=== PATIENT | male | born 1965 | race Caucasian/White ===

== ENCOUNTER 2017-10-19 00:51 | Emergency (ER) | payer BC, SELFPAY ==
[2017-10-19 00:52] VITALS: BP 190/90; PULSE 78; RESP 21; TEMP 36.6; O2SAT 97; BMI 36.1
[2017-10-19 00:58] VITALS: BP 183/88; PULSE 74; RESP 18; O2SAT 95
--- NOTE | 2017-10-19 01:08 | ED.VISSUMM ---
- ER Visit Summary Date of Service: 10/19/17 Chief Complaint: Paresthesias diffuse History of Present Illness: The patient is a 52 M stated that for last 3 weeks he has felt like his skin feels sunburn. It feels tingly and slightly painful to touch. It is everywhere. Occasionally he feels tingly. Occasionally gets some lightheadedness when he changes positions. He had a mild headache today frontal achy and use Tylenol. Is gone now. He tried to wait it out but continued to have the symptoms came in for further evaluation. Denies any past medical problems. Denies any visual deficits difficulties or other neurologic symptoms Physical Examination: [] Vital signs reviewed General: Well-nourished well-developed Head: Normocephalic atraumatic Eyes: Pupils equal round and reactive to light extraocular movements intact ENT: TMs clear no hemotympanum no trauma Neck: Nontender full range of motion Cardiovascular: Regular rate rhythm no murmurs normal S1-S2 Respiratory: No distress clear to auscultation bilaterally chest nontender Abdomen: Soft nontender nondistended normal bowel sounds no masses Back: Nontender no CVA tenderness Extremities: Nontender active range of motion ?4 extremities no trauma. Patient stated when I touch his extremities they feel like the skin is burned. Skin: Normal color no trauma Neuro alert oriented cranial nerves II through XII intact normal strength sensation reflexes Test Results: [] Emergency Department Course and Treatment: [] Lab work obtained. It shows nothing really remarkable. Glucose 207 but not a fasting level. Mag and false negative. All the other electrolytes unremarkable. Initially TSH was high but free T4 normal. No evidence of hypothyroidism. He will follow-up with his family doctor for further evaluation and treatment. I do not think he needs a CT of his head. Of a low suspicion for brain tumor intracranial hemorrhage. Patient thinks it might be stress related. He will follow-up Treatment Plan: [] Disposition: [] Impression: [] Full body paresthesia This note was generated with [employer] dictation software. It may contain incorrect words, spelling, and punctuation that were not noted in review of the chart prior to signing ED Disposition - Plan for ED Patient: Chief Complaint: Dizziness Referrals: Job Pizarro [Primary Care Provider] -
[2017-10-19 01:13] LABS: Absolute Lymphocyte Count 3.06 X10^3/ul (0.83-4.51); Absolute Neutrophil Count 3.3 X10^3/uL (2.0-7.7); Basophil# 0.05 X10^3/uL; Basophil% 0.7 % (0-1); Eosinophil# 0.43 X10^3/uL; Eosinophils% 5.6 % (0-5); Hematocrit 44.1 % (40-54); Hemoglobin 15.9 g/dl (13.0-16.5); Lymphocyte # 3.06 X10^3/ul (4.0); Lymphocyte % 39.9 % (19-41); Mean Corp Hgb Conc 36.1 g/gl (32-36); Mean Corpuscular Hgb 28.8 pg (27.0-32.0); Mean Corpuscular Volume 79.7 fL (80-94); Mean Platelet Vol. 8.6 fl (6.2-12.0); Monocyte# 0.84 X10^3/uL; Neutrophil # 3.27 X10^3/uL (2.7-7.7); Neutrophil % 42.5 % (47-70); POSITIVE COUNT NO; POSITIVE DIFFERENTIAL NO; POSITIVE MORPHOLOGY NO; Platelet Count 191 K/mm3 (150-450); RBC Distribution Width CV 13.2 % (11.6-14.6); RBC Distribution Width SD 37.8 fl (35.1-43.9); Red Blood Count 5.53 M/mm3 (4.6-6.2); White Blood Count 7.7 K/mm3 (4.4-11.0)
[2017-10-19 01:32] LABS: ALB/GLOB Ratio 1.1 RATIO (0.9-2.4); AST(SGOT) 19 U/L (15-37); Alanine Aminotransfer ALT/SGPT 31 U/L (16-61); Albumin, Serum 3.9 g/dL (3.2-5.0); Alkaline Phosphatase 86 U/L (45-117); Anion Gap 8 (5-15); BUN 12 mg/dL (7-18); BUN/Creat Ratio 11.1 RATIO (10-20); Calcium,Total 8.8 mg/dL (8.5-10.1); Chloride 104 mmol/L (98-107); Creatinine, Serum 1.08 mg/dL (0.70-1.30); EST Glomerular Filtration Rate 76 mL/min (>60); Est Glom Filt Rate - Afr Amer 92 mL/min (>60); Estimated Creatinine Clearance 82.61 ml/min; Globulin 3.6 g/dL (2.2-4.2); Glucose 207 mg/dL (74-106); Potassium 3.5 mmol/L (3.5-5.1); Protein, Total 7.5 g/dL (6.4-8.2); Sodium Level 138 mmol/L (136-145)
[2017-10-19 01:46] LABS: Thyroid Stim Hormone (TSH) 5.12 uIU/mL (0.358-3.74)
[2017-10-19 02:06] LABS: T4 Free Direct 1.06 ng/dL (0.76-1.46)
[2017-10-19 02:24] LABS: Phosphorus 3.2 mg/dL (2.5-4.9)
--- NOTE | 2017-10-19 02:33 | ED.DEP ---
ED Disposition - Plan for ED Patient: Disposition: Home or Assisted Living Chief Complaint: Dizziness Instructions: ED Paraesthesias Referrals: Job Pizarro [Primary Care Provider] -
[2017-10-19 02:37] VITALS: BP 153/92; PULSE 76; RESP 17; O2SAT 96
== END 2017-10-19 02:37 | disposition home or self-care (01) ==
PROVIDERS: Emergency Provider Emergency Medicine; Family Provider Family Medicine; PCP Family Medicine
DX: R20.2 Paresthesia of skin (principal); R51 Headache; E66.9 Obesity, unspecified
CPT/HCPCS: 80053; 83735; 84100; 84439; 84443; 85025; 99285

== ENCOUNTER 2018-06-09 09:27 | Emergency (ER) | payer BC, SELFPAY ==
[2018-06-09 09:28] VITALS: BP 153/102; PULSE 79; RESP 16; TEMP 36.8; O2SAT 96; BMI 35.4
[2018-06-09 09:37] VITALS: O2SAT 95
--- NOTE | 2018-06-09 09:43 | RAD_ITS ---
STUDY: X-RAY CHEST REASON FOR EXAM: Male, 53 years old. 2 week history of cough. TECHNIQUE: PA and lateral views of the chest. COMPARISON: None. FINDINGS: EKG electrodes are seen. The lungs are clear and expanded. There is no demonstrated pleural abnormality. Normal size heart. Normal mediastinum and saul. Normal visualized pulmonary arteries. Normal visualized aortic arch and descending thoracic aorta. There is a minimal levoscoliosis of the thoracic spine. Minimal degree of degenerative changes of the thoracic spine. Normal visualized ribs, clavicles, and shoulders. There is no demonstrated abnormality of the visualized soft tissue structures of the upper abdomen. RAD/Chest PA and Lateral IMPRESSION: No acute abnormality is seen. Electronically Signed: Ramin Terrell, at 10:36 EDT , Service support ,
--- NOTE | 2018-06-09 09:44 | ED.VISSUMM ---
- ER Visit Summary Date of Service: 06/09/18 Chief Complaint: Cough and congestion History of Present Illness: The patient is a 53 M who presents with cough and congestion that has been getting worse over the past month. Patient states the cough became worse over the past few days. Patient states she is coughing up some yellow sputum. Patient admits to a low-grade fever of 99.8 at home. Patient admits to some rhinorrhea. Patient admits to some pain in his chest and some shortness of breath. Patient states his chest pain is only when he coughs. Patient admits to some myalgias. Patient denies any nausea, vomiting, or diarrhea. Physical Examination: All signs are stable. Patient is afebrile. Patient is in no acute distress. Oral mucosa is pink and moist. Oropharynx shows some mild postnasal drainage. Nasal mucosa is congested. Tympanic membranes are clear bilaterally. Neck is supple. Trachea is midline. There is no JVD or lymphadenopathy noted. Heart was regular rate and rhythm. Lungs showed expiratory wheezing and rhonchi. There is good respiratory effort noted. Abdomen is soft nontender. Cranial nerves II through XII are intact. There are no focal motor or sensory deficits noted. Test Results: CBC and basic metabolic profile were normal. PA and lateral chest x-ray does not show any acute cardiopulmonary process. Emergency Department Course and Treatment: Patient was given a DuoNeb aerosol here. Patient was instructed that this is most likely a viral upper respiratory infection. Patient was instructed to drink plenty of fluids. Patient was instructed to take Tylenol or ibuprofen as needed for any pain or fevers. Patient was instructed to follow-up with his primary care physician in 5-7 days. Patient understood and was agreeable with the plan. All questions were answered. Disposition: Discharge home Impression: Viral upper respiratory infection This note was generated with [employer] dictation software. It may contain incorrect words, spelling, and punctuation that were not noted in review of the chart prior to signing ED Disposition - Plan for ED Patient: Disposition: Home or Assisted Living Diagnosis: Viral upper respiratory tract infection with cough Instructions: ED Upper Resp Infec No Abx Tx Referrals: Job Pizarro [NON-STAFF] - 5-7 Days
[2018-06-09 09:58] VITALS: PULSE 72; RESP 10; O2SAT 96
[2018-06-09] MEDS: Ipratropium/Albuterol Sulfate 3 ML AMPUL.NEB INHALATION (09:58)
[2018-06-09 10:10] LABS: Absolute Lymphocyte Count 2.07 X10^3/ul (0.83-4.51); Absolute Neutrophil Count 3.6 X10^3/uL (2.0-7.7); Basophil# 0.03 X10^3/uL; Basophil% 0.4 % (0-1); Eosinophil# 0.48 X10^3/uL; Eosinophils% 6.9 % (0-5); Hematocrit 45.9 % (40-54); Hemoglobin 16.3 g/dl (13.0-16.5); Lymphocyte # 2.07 X10^3/ul (4.0); Lymphocyte % 29.8 % (19-41); Mean Corp Hgb Conc 35.5 g/gl (32-36); Mean Corpuscular Hgb 27.9 pg (27.0-32.0); Mean Corpuscular Volume 78.6 fL (80-94); Mean Platelet Vol. 8.4 fl (6.2-12.0); Monocyte# 0.73 X10^3/uL; Monocyte% 10.5 % (0-10); Neutrophil # 3.63 X10^3/uL (2.7-7.7); Neutrophil % 52.3 % (47-70); Platelet Count 184 K/mm3 (150-450); RBC Distribution Width CV 13.5 % (11.6-14.6); RBC Distribution Width SD 37.8 fl (35.1-43.9); Red Blood Count 5.84 M/mm3 (4.6-6.2)
[2018-06-09 10:11] LABS: POSITIVE COUNT NO; POSITIVE DIFFERENTIAL NO; POSITIVE MORPHOLOGY NO
[2018-06-09 10:20] LABS: Anion Gap 5 (5-15); BUN 12 mg/dL (7-18); BUN/Creat Ratio 12.8 RATIO (10-20); Calcium,Total 8.5 mg/dL (8.5-10.1); Chloride 106 mmol/L (98-107); Creatinine, Serum 0.94 mg/dL (0.70-1.30); EST Glomerular Filtration Rate 89 mL/min (>60); Est Glom Filt Rate - Afr Amer 108 mL/min (>60); Estimated Creatinine Clearance 93.84 ml/min; Glucose 112 mg/dL (74-106); Potassium 3.6 mmol/L (3.5-5.1); Sodium Level 137 mmol/L (136-145)
== END 2018-06-09 11:28 | disposition home or self-care (01) ==
PROVIDERS: Emergency Provider Emergency Medicine
DX: J06.9 Acute upper respiratory infection, unspecified (principal)
CPT/HCPCS: 71046; 80048; 85025; 94640; 99282; A4216

== ENCOUNTER → 2020-05-04 16:00 | Outpatient (CLI) | payer BC, SELFPAY ==
--- NOTE | 2020-05-04 16:29 | CT_ITS ---
STUDY: CT LEFTLOWER EXTREMITY WITHOUT CONTRAST REASON FOR EXAM: Male, 55 years old. LEFT KNEE REPLACEMENT RADIATION DOSAGE (If Supplied By Facility): CTDIvol = ( 19.42 ) mGy, DLP = ( 1351.43 ) mGycm TECHNIQUE: Thin section transaxial imaging of the ankle was obtained, with sagittal and coronal reconstructed images. Individualized dose optimization techniques were used for this CT. COMPARISON: None. Hip findings: A small moderate size diffuse osteophyte is present across the anterior aspect of the left SI joint. A small fat-containing left inguinal hernia is also present. No visualized fractures or avascular necrosis. Normal visualized superior and inferior pubic rami and ischial tuberosities. Small unfused apophysis or normal variant ossicle of the posterior aspect of the left ischial tuberosity versus sequela of an old hamstring avulsion fracture noted. There is mild axial narrowing of the left hip joint in addition to cortical spurring at the lateral aspect of the acetabular roof. Unremarkable soft tissues. Normal visualized soft tissue structures of the pelvis. Knee findings: Normal tibiofibular articulation. No visualized fractures. There is severe lateral patellofemoral narrowing and degenerative osteoarthritis. A small joint effusion is present. The medial lateral compartments are mildly narrowed with mild cortical osteophyte formation. Normal proximal tibiofibular articulation. The quadriceps tendon is grossly normal. The patellar tendon is grossly normal. Normal Hoffa''s fat pad. The soft tissues are unremarkable. Ankle findings: Moderate calcaneal enthesopathy noted at the Achilles tendon insertion site. Small corticated ossicle at the undersurface of the lateral malleolus could represent sequela from prior trauma or an unfused apophysis. No fracture or avascular necrosis or osteochondral defect is seen. Small corticated ossicles on the medial proximal aspect of the navicular bone could represent normal ossicles or sequela from previous avulsion trauma. Normal visualized distal tibia and fibula. Normal tibiotalar articulation and talar dome. Normal talus, calcaneus, navicular and cuboid tarsal bones. Normal subtalar, talonavicular and calcaneocuboid articulations. Normal navicular-cuneiform, cuneiform tarsal bones and intercuneiform articulations. Normal tarsometatarsal articulations and visualized metatarsi. The soft tissue structures are grossly normal. CT/Extremity Lower without Contra IMPRESSION: Degenerative changes of the left hip and knee Electronically Signed: Silvestre Velazquez MD at 23:15 EST , Service support ,
== END ==
PROVIDERS: PCP Student in an Organized Health Care Education/Training Program; Referring Provider Orthopaedic Surgery; Visit Provider Orthopaedic Surgery
DX: M17.12 Unilateral primary osteoarthritis, left knee (principal)
CPT/HCPCS: 73700

== ENCOUNTER 2020-05-16 05:29 | Day surgery (SDC) | payer BC, SELFPAY ==
--- NOTE | 2020-05-04 16:13 | EKG12_ITS ---
Test Reason : PRE SURGERY Blood Pressure : / mmHG Vent. Rate : 076 BPM Atrial Rate : 076 BPM P-R Int : 138 ms QRS Dur : 088 ms QT Int : 386 ms P-R-T Axes : 052 002 035 degrees QTc Int : 434 ms Normal sinus rhythm Normal ECG Confirmed by KEYANA ROBERTSON, DARREL ([id number]), editorial cartoonist SANDRA MATIAS ([id number]) on 05/05/2020 8:40:46 AM Referred By: Uriah Bacon Confirmed By:DARREL RIDLEY MD
[2020-05-04 16:42] LABS: Hematocrit 45.1 % (40-54); Hemoglobin 15.6 g/dL (13.0-16.5); Mean Corp Hgb Conc 34.6 g/dL (32-36); Mean Corpuscular Hgb 27.5 pg (27.0-32.0); Mean Corpuscular Volume 79.4 fL (80-94); Mean Platelet Vol. 8.4 fl (6.2-12.0); Platelet Count 299 K/mm3 (150-450); RBC Distribution Width CV 12.9 % (11.6-14.6); RBC Distribution Width SD 36.4 fl (35.1-43.9); Red Blood Count 5.68 M/mm3 (4.6-6.2); White Blood Count 8.7 K/mm3 (4.4-11.0)
[2020-05-04 17:05] LABS: Anion Gap 8 (5-15); BUN 16 mg/dL (7-18); BUN/Creat Ratio 17.8 RATIO (10-20); Chloride 103 mmol/L (98-107); EST Glomerular Filtration Rate 93 mL/min (>60); Est Glom Filt Rate - Afr Amer 113 mL/min (>60); Glucose 99 mg/dL (74-106); Potassium 3.4 mmol/L (3.5-5.1); Sodium Level 136 mmol/L (136-145)
[2020-05-04 17:14] LABS: Magnesium 2.1 mg/dL (1.6-2.6)
[2020-05-16] VITALS (10 sets, daily range): BP systolic 106–137; BP diastolic 64–94; PULSE 71–88; RESP 14–16; TEMP 36.3–37.2; O2SAT 93–100; BMI 37.0
--- NOTE | 2020-05-16 | KNEE_PTH ---
PATIENT: YESENIA WOODS Jr. LOC: [facility] [place] U#:[id number] AGE/SX: 55/M ROOM: RE05/16/[address]: Dr. Uriah Bacon DO : 1965 BED: DIS: 05/16/2020 SPEC #: [id number] RECD: 05/16/20 12:58 STATUS: SHONNA REQ #: [id number] JW: 05/16/20 00:[address]: Uriha Bacon DEPT: SURGICAL PATHOLOGY RECD BY: Sundar Kenney ENTERED: 05/16/20 12:58 SP TYPE: TOTAL KNEE OTHR DR: Dr. Mustapha Landa DO Tissues: Knee, NOS Procedures: Decalcification bone/plaque Surgery Specimen Level IV HEADER OPERATION: ERAS, total knee replacement robotic arm assist PRE-OP DIAGNOSIS: Osteoarthritis left knee TISSUE SUBMITTED: Left knee bone and soft tissue MICROSCOPIC DIAGNOSIS Bone and soft tissue, left knee, total knee replacement/resection: Pieces of bone with degenerative osteoarthritic changes. GAVIN:jocelynn 05/19/2020 MICROSCOPIC DESCRIPTION Slides are reviewed. GROSS DESCRIPTION Received is one container designated bone and soft tissue left knee. The specimen consists of multiple fragments of sousa-yellow bone measuring in aggregate 10 x 10 x 3 cm. No soft tissue is identified. A number of bony fragments contain articular surfaces consistent with tibial plateau and femoral condyle and displaying prominent osteophyte formation, eburnation, and bone erosion. [employer] Network Planner sections from the bone is submitted one cassette after decalcification. / GAVIN:jocelynn 05/16/20 TC:5 CPT: 91622, 74384
[2020-05-16 06:26] LABS: Bedside Glucose 207 mg/dL (70-110)
[2020-05-16] MEDS: Gabapentin 600 MG Tablet PO (06:43)
[2020-05-16] MEDS: Acetaminophen 500 MG Tablet 1000 MG PO (06:43)
[2020-05-16] MEDS: Insulin Lispro 100 UNIT/ML INSULN.PEN SC (06:44)
[2020-05-16] MEDS: Scopolamine 1mg/72hr Patch 1 PATCH TD (06:48)
[2020-05-16] MEDS: Lactated Ringers 1,000 ML 100 ML IV (07:00)
[2020-05-16] MEDS: Cefazolin 2 GM in 0.9% Normal Saline 100 ML IV ×2 (07:30→12:59)
--- NOTE | 2020-05-16 07:34 | RAD_ITS ---
STUDY: X-RAY - LEFT KNEE REASON FOR EXAM: Male, 55 years old. Pain. TECHNIQUE: 2 view(s) of the knee. COMPARISON: None. FINDINGS: Status post total knee arthroplasty. Surgical hardware intact/well aligned. No acute complications. Postoperative soft tissues with staple line. RAD/Knee 1 or 2 Views IMPRESSION: Uncomplicated left knee arthroplasty Electronically Signed: Irwin Quesada DO at 10:13 EST Tel , Service support ,
--- NOTE | 2020-05-16 08:48 | PCM.OPRPT ---
Report of Operation Date of Procedure: 05/16/20 Pre-Operative Diagnosis: OA left knee Post-Operative Diagnosis: same Surgery/Procedure Performed:: Left TKR wildlife ecology professor: Salo Quesada Type of Anesthesia:: Spinal Anesthesiologist: Irwin Gomez Specimen's removed: bone Estimated Blood Loss (mL): 20 cc Fluids Replaced: 1000 cc crystalloid - Admit VTE Documentation VTE Present on Admission: No VTE Mechan Device Prophylaxis: SCD's, Thigh High ROSIE Hose VTE Pharm Prophylaxis ordered?: Yes
[2020-05-16] MEDS: Lactated Ringers 1,000 ML 125 ML IV (09:30)
[2020-05-16 10:41] LABS: Bedside Glucose 169 mg/dL (70-110)
[2020-05-16] MEDS: HYDROcodone Bitartrate/Apap 5/325 Tablet PO (11:20)
== END 2020-05-16 14:00 | disposition home or self-care (01) ==
LOC: SDC 05:29 → AC 05:30
PROVIDERS: Anesthesiology; PCP Student in an Organized Health Care Education/Training Program; Referring Provider Orthopaedic Surgery; Visit Provider Orthopaedic Surgery
PROC: 0SRD0JZ Replacement of Left Knee Joint with Synthetic Substitute, Open Approach (ICD-10-PCS; CPT 27447; principal; 2020-05-16 07:00)
DX: M17.12 Unilateral primary osteoarthritis, left knee (principal); I10 Essential (primary) hypertension; E66.9 Obesity, unspecified; Z68.37 Body mass index [BMI] 37.0-37.9, adult; Z20.822 Contact with and (suspected) exposure to COVID-19
CPT/HCPCS: 01402; 27447; 64447; 76942; S2900; 36415; 73560; 80048; 82962; 83735; 85027; 87081; 87426; 88305; 88311; 93005; 97161; C1776; C9803; J7120; A4216; J2405

== ENCOUNTER 2020-06-12 01:03 | Observation (INO) | payer BC, SELFPAY ==
[2020-05-16 06:28] VITALS: BMI 37.0
[2020-06-12] VITALS (17 sets, daily range): BP systolic 135–158; BP diastolic 69–83; PULSE 66–97; RESP 17–24; TEMP 36.1–37.1; O2SAT 93–98; BMI 35.9; BMI 35.4
--- NOTE | 2020-06-12 01:17 | RAD_ITS ---
STUDY: X-RAY CHEST REASON FOR EXAM: Male, 55 years old. cough TECHNIQUE: Single AP portable view of the chest. COMPARISON: 06/09/2018. FINDINGS: The lungs are slightly underexpanded with multiple subtle groundglass densities raising the concern of multifocal pneumonitis. There is no demonstrated pleural abnormality. Normal size heart. Normal mediastinum and saul. Normal visualized pulmonary arteries. Normal visualized aortic arch and descending thoracic aorta. Normal visualized thoracic spine. There is mild degenerative osteoarthritis of the bilateral shoulders. There is no demonstrated abnormality of the visualized soft tissue structures of the upper abdomen. RAD/Chest 1 View (Portable) IMPRESSION: Possible mild multifocal pneumonitis versus superimposition artifact. Clinical correlation recommended. Electronically Signed: Roselyn Mcallister MD at 2:11 EDT , Service support ,
--- NOTE | 2020-06-12 01:17 | EKG12_ITS ---
Test Reason : SOB Blood Pressure : / mmHG Vent. Rate : 084 BPM Atrial Rate : 084 BPM P-R Int : 140 ms QRS Dur : 100 ms QT Int : 382 ms P-R-T Axes : 040 -09 036 degrees QTc Int : 451 ms Normal sinus rhythm Normal ECG Confirmed by KEYANA ROBERTSON, DARREL ([id number]), book or script editor TARAH MURILLO ([id number]) on 06/13/2020 1:38:43 PM Referred By: BB Confirmed By:DARREL RIDLEY MD
--- NOTE | 2020-06-12 01:18 | ED.VIS.CHEST ---
History of Present Illness Chief Complaint: Chest Pain Informant: Patient Onset: Yesterday Activity at onset: - - gradual onset Timing: Continuous Quality: Dull Location: Left Chest - w/o radiation Current Severity: Moderate Maximum Severity: Moderate Worsened By: Breathing, Coughing Relieved By: Nothing Associated Symptoms: Dyspnea, Cough, Fever. Negative for: Nausea, Vomiting, Diaphoresis, Lightheadedness, Palpitations Narrative: Patient's recently had Covid, but then he started getting ill 9 days ago, after discussing with his doctor, he basically quarantined and assumed that he had Covid. Yesterday he started feeling worse which progressed, he has been having dyspnea pleuritic left-sided chest pain and continued myalgias and malaise with occasional fevers up to the mid 100 range. No history of heart or lung problems. Denies any loss of taste or smell. His is better now. PE Risk Factors: Negative for: Recent Travel/Surgery, Recenet Immobilization, Prior DVT or PE, Cancer, OCP + Smoking + >/=35 - Past Medical History (1) Hypertension Status: Chronic (2) Osteoarthritis of left knee Status: Chronic (3) ISAMAR (obstructive sleep apnea) Status: Chronic Past Medical History - Allergies and Home Meds Allergies/Adverse Reactions: Allergies No Known Allergies Allergy (Verified 06/12/20 01:04) Primary Care Physician: Mustapha Landa DO [Primary Care Provider] - Surgical History: appendectomy, total knee arthroplasty - Left, - - Wrist surgery Lives: Spouse/ Significant Other Smoking Status: Never smoker - Family History Maternal Family History: Reports: No pertinent history Review of Systems General: Reports: Chills, Fever, Malaise. Denies: Sweats Eyes: Denies: Visual changes - bilaterally, Diplopia ENT: Denies: Bilateral ear pain, Rhinorrhea, Sore throat Cardiovascular: Reports: Chest pain. Denies: Palpitations Respiratory: Reports: Dyspnea, Cough. Denies: Sputum Gastrointestinal: Reports: Nausea, Diarrhea. Denies: Abdominal pain, Vomiting, Melena, Hematochezia Genitourinary: Denies: Dysuria, Hematuria, Frequency Musculoskeletal: Reports: Myalgias. Denies: Back pain, Swelling, Extremity Pain Skin: Denies: Rash, Wounds Neurological: Denies: Headache, Weakness, Numbness Physical Exam Vital Signs/Narrative: Vital Signs Temp Pulse Resp BP Pulse Ox 03/28/21 01:05 98.7 F 92 22 H 158/79 H 98 Inital Vital Signs reviewed: Yes General: Well nourished, Well developed, No Acute Distress Head: Normocephalic, Atraumatic Eyes: Perrl, EOMI ENT: Moist mucous membranes, No rhinorrhea Neck: Supple, Nontender, No lymphadenopathy, No JVD Cardiovascular: Regular rate, Regular rhythm, No murmurs Respiratory: No distress, CTA bilaterally, Chest nontender Abdomen: Soft, Nontender, Nondistended, Normal bowel sounds Back: Nontender, Normal Inspection Extremities: Nontender, No edema, - - Well-healed left total knee surgical incision. Negative for: Calf Tenderness Skin: Normal color, No rash, No Trauma Neurological: Alert, Oriented x3, Cranial nerves II-XII grossly intact, Normal Strength, Normal Sensation, Normal Gait Psychological: Normal affect, Normal Mood Diagnostic/Tx/Re-eval Chest X-Ray - ED: 1 View, Read by ED Physician, Right Infiltrate, Left Infiltrate Impressions Chest X-Ray 06/12/20 01:17 IMPRESSION: Possible mild multifocal pneumonitis versus superimposition artifact. Clinical correlation recommended. Electronically Signed: Roselyn Mcallister MD at 2:11 EDT , Service support , Chest CTA 06/12/20 02:03 IMPRESSION: Negative CTA chest examination, without a demonstrated pulmonary embolism or arterial dissection. Diffuse multifocal multilobar bilateral pneumonitis as described. No pleural effusion or pneumothorax. Electronically Signed: Roselyn Mcallister MD at 2:42 EDT , Service support , 06/12/20 01:17 Chest 1 View (Portable) [RAD] Stat 06/12/20 02:03 CTA Chest W/WO Contrast [CT] Stat 06/12/20 01:26 Mucosa - Nose SARS-CoV-2 Antigen (Rapid) - Final SARS-CoV-2 (COVID 19) Laboratory Results 06/12/20 06/12/20 06/12/20 01:20 01:20 01:20 WBC 5.0 RBC 5.15 Hgb 13.8 Hct 40.9 MCV 79.4 L MCH 26.8 L MCHC 33.7 RDW Std Deviation 37.2 RDW Coeff of Alia 13.1 Plt Count 202 MPV 8.3 Immature Gran % (Auto) 0.400 Neut % (Auto) 63.7 Lymph % (Auto) 25.1 Hickman % (Auto) 10.4 H Eos % (Auto) 0.2 Baso % (Auto) 0.2 Absolute Neuts (auto) 3.2 Absolute Lymphs (auto) 1.26 Nucleated RBC % 0 D-Dimer Quant (PE/DVT) 2.12 H* Sodium 133 L Potassium 3.3 L Chloride 101 Carbon Dioxide 26.0 Anion Gap 6 BUN 13 Creatinine 0.76 Estim Creat Clear Calc 113.40 Est GFR (MDRD) Af Amer 137 Est GFR (MDRD) Non-Af 113 BUN/Creatinine Ratio 17.1 Glucose 131 H Lactic Acid Calcium 8.6 Total Bilirubin 0.80 AST 18 ALT 26 Alkaline Phosphatase 78 Troponin I < 0.015 Total Protein 7.6 Albumin 3.6 Globulin 4.0 Albumin/Globulin Ratio 0.9 06/12/20 01:20 WBC RBC Hgb Hct MCV MCH MCHC RDW Std Deviation RDW Coeff of Alia Plt Count MPV Immature Gran % (Auto) Neut % (Auto) Lymph % (Auto) Hickman % (Auto) Eos % (Auto) Baso % (Auto) Absolute Neuts (auto) Absolute Lymphs (auto) Nucleated RBC % D-Dimer Quant (PE/DVT) Sodium Potassium Chloride Carbon Dioxide Anion Gap BUN Creatinine Estim Creat Clear Calc Est GFR (MDRD) Af Amer Est GFR (MDRD) Non-Af BUN/Creatinine Ratio Glucose Lactic Acid 1.0 Calcium Total Bilirubin AST ALT Alkaline Phosphatase Troponin I Total Protein Albumin Globulin Albumin/Globulin Ratio - Rhythm Strip Rhythm Strip: Sinus Rhythm Rate: 90 Ectopy: None - EKG Initial EKG Interpretation: Sinus Rhythm, No Acute Injury Pattern - Normal EKG Treatment: - - albuterol MDI - Medical Decision Making Patient's rapid Covid returned positive. I think it is a true positive and there is no need for PCR. His chest x-ray was concerning for Covid pneumonia, his D-dimer returned elevated so CT angiography was performed, confirming Covid pneumonitis diffusely bilaterally, although it could be worse. No pulmonary embolus. Labs as above. Procalcitonin returned WNL, so no antibiotics given at this point. He is not hypoxic. However he is dyspneic, still having chest discomfort even after albuterol which did not help any of his symptoms, and with ambulating he is very weak and shaky and he looks ill with pulse ox going down below 94%. Since he currently is on day 10 of his symptoms and it is Saturday night/Saturday morning, he will not qualify for the monoclonal antibody treatment which is only given on week. I think admitting him for close observation and further treatment for Covid is warranted based on his clinical condition. Given Decadron 6mg IV. Clinically stable enough for cohort floor. ED Disposition - Plan for ED Patient: Disposition: Acute Care [facility] Diagnosis: Pneumonia due to COVID-19 virus Referrals: Mustapha Landa DO [Primary Care Provider] -
[2020-06-12 01:33] LABS: Absolute Lymphocyte Count 1.26 X10^3/uL (0.83-4.51); Absolute Neutrophil Count 3.2 X10^3/uL (2.0-7.7); Basophil# 0.01 X10^3/uL; Basophil% 0.2 % (0-1); Eosinophil# 0.01 X10^3/uL; Eosinophils% 0.2 % (0-5); Hematocrit 40.9 % (40-54); Hemoglobin 13.8 g/dL (13.0-16.5); Lymphocyte # 1.26 X10^3/ul (4.0); Lymphocyte % 25.1 % (19-41); Mean Corp Hgb Conc 33.7 g/dL (32-36); Mean Corpuscular Hgb 26.8 pg (27.0-32.0); Mean Corpuscular Volume 79.4 fL (80-94); Mean Platelet Vol. 8.3 fl (6.2-12.0); Monocyte# 0.52 X10^3/uL; Monocyte% 10.4 % (0-10); NRBC Flagged by Analyzer 0 % (0-5); Neutrophil # 3.19 X10^3/uL (2.7-7.7); Neutrophil % 63.7 % (47-70); Platelet Count 202 K/mm3 (150-450); RBC Distribution Width CV 13.1 % (11.6-14.6); RBC Distribution Width SD 37.2 fl (35.1-43.9); Red Blood Count 5.15 M/mm3 (4.6-6.2)
[2020-06-12 01:50] LABS: D-Dimer Quantitative (DVT/PE) 2.12 FEU/ug/m (0.27-0.49)
[2020-06-12 01:52] LABS: ALB/GLOB Ratio 0.9 RATIO (0.9-2.4); AST(SGOT) 18 U/L (15-37); Alanine Aminotransfer ALT/SGPT 26 U/L (16-61); Albumin, Serum 3.6 g/dL (3.2-5.0); Alkaline Phosphatase 78 U/L (45-117); Anion Gap 6 (5-15); BUN 13 mg/dL (7-18); BUN/Creat Ratio 17.1 RATIO (10-20); Calcium,Total 8.6 mg/dL (8.5-10.1); Chloride 101 mmol/L (98-107); Creatinine, Serum 0.76 mg/dL (0.70-1.30); EST Glomerular Filtration Rate 113 mL/min (>60); Est Glom Filt Rate - Afr Amer 137 mL/min (>60); Glucose 131 mg/dL (74-106); Potassium 3.3 mmol/L (3.5-5.1); Protein, Total 7.6 g/dL (6.4-8.2); Sodium Level 133 mmol/L (136-145)
[2020-06-12] MEDS: Ondansetron 4 MG/2 ML Vial IV (01:56)
--- NOTE | 2020-06-12 02:03 | CT_ITS ---
STUDY: CTA CHEST REASON FOR EXAM: Male, 55 years old. chest pain, COVID, elevated d-dimer RADIATION DOSAGE (If Supplied By Facility): CTDIvol = ( 19.77 ) mGy, DLP = ( 520.91 ) mGycm TECHNIQUE: The examination was performed with the intravenous administration of IV 100mL Isovue-370. Post-processing of the angiographic images was performed, with multiplanar reformation and 3D reconstruction. Individualized dose optimization techniques were used for this CT. COMPARISON: None. FINDINGS: Normal enhancement of the main pulmonary artery and right and left pulmonary arteries. Normal enhancement of the bilateral peripheral pulmonary arteries. There is no demonstrated pulmonary embolism. Normal thoracic aorta and visualized great vessels. There is no demonstrated aortic dissection. Normal heart and pericardium. Normal mediastinum. Normal hilar regions. Normal visualized trachea and bronchi. The lungs are well expanded. Multiple and diffusely scattered groundglass opacities with a predominantly subpleural as well as perihilar distribution consistent with multifocal pneumonitis. Normal pleura. Normal chest wall structures. There are degenerative changes of thoracic spine. Minimal hiatal hernia otherwise unremarkable visualized upper abdomen. CT/CTA Chest W/WO Contrast IMPRESSION: Negative CTA chest examination, without a demonstrated pulmonary embolism or arterial dissection. Diffuse multifocal multilobar bilateral pneumonitis as described. No pleural effusion or pneumothorax. Electronically Signed: Roselyn Mcallister MD at 2:42 EDT , Service support ,
[2020-06-12 03:23] LABS: Procalcitonin 0.04 ng/mL (0.00-0.09)
--- NOTE | 2020-06-12 03:24 | ED.RN ---
PT WAS SHAKING AND WEAK WHILE WALKING. SPO2 REMAINED 95% ON ra WITH hr OF 107. DR. AGUILAR NOTIFIED
--- NOTE | 2020-06-12 03:29 | PCM.HP.STD ---
Problem List (1) Pneumonia due to COVID-19 virus Status: Acute (2) Hypoxia Status: Acute (3) Hypertension Status: Chronic Qualifiers: Hypertension type: essential hypertension Qualified Code(s): I10 - Essential (primary) hypertension (4) ISAMAR (obstructive sleep apnea) Status: Chronic History of Present Illness Date of Admission: 06/12/20 Chief Complaint: Chest pain, cough, dyspnea, fevers, spouse with + COVID status recently. The patient is a 55 y/o M w/ PMHx: HTN, ISAMAR on CPAP q HS, Chronic back pain, Obesity who presents to the [facility] ED on 06/12/20 with history of patient's recently having been ill with Covid however he started to also become ill approximately 9 days prior to current presentation with self quarantine with the assumption of Covid onset with worsening symptoms the day prior to current presentation with onset of left-sided pleuritic chest discomfort described as dull aching, continuous, worse with deep inspiratory effort with ongoing cough, dyspnea, fevers, myalgias, malaise, nausea with poor oral intake ability, mild abdominal cramping as well as diarrhea intermittently and fatigue prompting ED evaluation. Work-up in the ED included T 98.7, heart rate 92, BP 158/72, respiratory rate 22, 98% on room air however patient did decrease to 93% on room air during ED presentation, CBC with WBC 5.0, hemoglobin 13.8, platelet 202 without marked shift, D-dimer 2.12, CMP with sodium 133, potassium 3.3, glucose 131, troponin less than 0.015, lactic acid 1.0, blood culture x2 pending per ED, SARS rapid Covid antigen positive, rapid influenza panel negative, chest x-ray with mild multifocal pneumonitis, EKG with sinus rhythm with no acute evidence of ischemia. In the ED patient administered albuterol inhaler, NS and Zofran therapy. Past Medical History Past Medical History (Chronic Problems): Chronic Problems Hypertension (Chronic) Osteoarthritis of left knee (Chronic) ISAMAR (obstructive sleep apnea) (Chronic) Allergies No Known Allergies Allergy (Verified 06/12/20 01:04) Home Medications: Ambulatory Orders Medication Instructions Recorded Lisinopril [Zestril] 10 mg PO DAILY 05/04/20 Surgical History: appendectomy, total knee arthroplasty - Left, - - Wrist surgery Psychiatric History: No pertinent psych hx Lives: Spouse/ Significant Other Smoking Status: Never smoker Tobacco Use: Non-smoker Alcohol: Occasional Drugs: None - *Family History Maternal History Items: Stroke Paternal History Items: Diabetes, Stroke Review of Systems Constitutional: Reports: Anorexia, Chills, Fever, Malaise, Weakness, Fatigue. Denies: Weight Change HEENT: Denies: Head Aches, Sinus Congestion, Sinus Drainage Cardiovascular: Reports: Chest Pain. Denies: Palpitations Respiratory: Reports: Cough, Shortness of Breath, Shortness of breath at rest, Shortness of breath upon exertion. Denies: Sputum production, Wheezing Gastrointestinal: Reports: Abdominal Pain, Diarrhea, Nausea. Denies: Vomiting Genitourinary: Denies: Dysuria Musculoskeletal: Reports: Joint Pain, Muscle pain. Denies: Joint Tenderness Skin: Denies: Rash, Wounds Neurological: Denies: Numbness, Tingling, Focal weakness Psychiatric: Denies: Anxiety, Depression, Homicidal Ideations, Suicidal Ideations Hematologic/ Lymphatic: Denies: Easy Bruising, Easy Bleeding VTE Information - Inpt Only VTE Present on Admission: No VTE Mechan Device Prophylaxis: SCD's VTE Pharm Prophylaxis ordered?: Yes Patient Problems: Active and Suspected Problems Pneumonia due to COVID-19 virus (Acute) Hypoxia (Acute) Subjective: Patient laying in the ED bed, fatigued and extremely ill-appearing. Objective: Physical Examination: General: awake, alert, oriented x 3 and cooperative, laying in the ED bed, fatigued and ill-appearing, no obvious distress. Skin: normal color, turgor, no icterus, cyanosis. HEENT: AT/NC, EOMI, PERRLA, dry MM, no carotid bruits or JVD noted. Lungs: Diffusely diminished breath sounds, greater bases, notable coughing fits with requested deep inspiratory effort, no rales, ronchi or wheezing. Heart: Mildly tachycardic with regular rhythm; no gallop, rub audible. Abdomen: soft, obese, NTTP, ND, moderately hyperactive BS, no HSM. Extremities: no cyanosis, clubbing, or edema. Neurological: patient awake, alert, oriented as noted; cognitive function intact; pupils equally reactive to light and accomodation; cranial nerves II-XII grossly normal, moving all 4 extremities, no focal deficits, strength moderately to severely global decrease secondary to acute presentation. Psychiatric: affect appears fatigued and ill-appearing, no acute evidence of depressive or anxiety feelings. - Physical Exam Vitals/I&O's: Vital Signs Temp Pulse Resp BP Pulse Ox 98.7 F 97 21 H 138/83 H 95 06/12/20 01:05 06/12/20 03:04 06/12/20 03:04 06/12/20 03:04 06/12/20 03:04 Oxygen Delivery Method Room Air Weight: 250 lb 7.122 oz Body Mass Index (BMI) 35.9 Microbiology Past 72 Hours 06/12/20 01:32 Mucosa - Nasopharyngeal Influenza Types A,B Direct FA (NICO) - Final 06/12/20 01:26 Mucosa - Nose SARS-CoV-2 Antigen (Rapid) - Final SARS-CoV-2 (COVID 19) Laboratory Results 06/12/20 01:20: WBC 5.0, RBC 5.15, Hgb 13.8, Hct 40.9, MCV 79.4 L, MCH 26.8 L, MCHC 33.7, RDW Std Deviation 37.2, RDW Coeff of Alia 13.1, Plt Count 202, MPV 8.3, Immature Gran % (Auto) 0.400, Neut % (Auto) 63.7, Lymph % (Auto) 25.1, [place] % (Auto) 10.4 H, Eos % (Auto) 0.2, Baso % (Auto) 0.2, Absolute Neuts (auto) 3.2, Absolute Lymphs (auto) 1.26, Nucleated RBC % 0 06/12/20 01:20: D-Dimer Quant (PE/DVT) 2.12 H* 06/12/20 01:20: Sodium 133 L, Potassium 3.3 L, Chloride 101, Carbon Dioxide 26.0, Anion Gap 6, BUN 13, Creatinine 0.76, Estim Creat Clear Calc 113.40, Est GFR (MDRD) Af Amer 137, Est GFR (MDRD) Non-Af 113, BUN/Creatinine Ratio 17.1, Glucose 131 H, Calcium 8.6, Total Bilirubin 0.80, AST 18, ALT 26, Alkaline Phosphatase 78, Troponin I < 0.015, Total Protein 7.6, Albumin 3.6, Globulin 4.0, Albumin/Globulin Ratio 0.9 06/12/20 01:20: Lactic Acid 1.0 06/12/20 01:20: Procalcitonin 0.04 Current Medications Sodium Chloride 1,000 ml/ N/A 1,000 mls @ 113.6 mls/hr IV .[id number] [facility] Stop: 06/13/20 02:06 Last Admin: 06/12/20 02:23 Dose: 1 ml/kg/hr, 113.6 mls/hr Documented by: Assessment/Plan All Active Problems Pneumonia due to COVID-19 virus (Acute) Hypoxia (Acute) Appendicitis (Acute) The patient is a 55 y/o M w/ PMHx: HTN, ISAMAR on CPAP q HS, Chronic back pain, Obesity who presents to the [facility] ED on 06/12/20 with history of patient's recently having been ill with Covid however he started to also become ill approximately 9 days prior to current presentation with self quarantine with the assumption of Covid onset with worsening symptoms the day prior to current presentation with onset of left-sided pleuritic chest discomfort described as dull aching, continuous, worse with deep inspiratory effort with ongoing cough, dyspnea, fevers, myalgias, malaise and fatigue prompting ED evaluation. 1. Acute Hypoxia secondary to Acute Bilateral Pneumonia secondary to Acute Viral Syndrome, COVID-19: Will admit to the COVID unit, will maintain on oxygen with wean as tolerated to room air, PRN albuterol, HOB, IS parameters w/ pending sputum cultures, respiratory viral panel and urine antigens, will obtian procalcitonin, CRP, CPK, Ferritin, LDH and BNP, continue supportive care including q 2 hour turning including prone given no prone bed availability and judicious hydration, closely monitor for worsening status for ARDS and multiorgan failure, will consult Infectious disease, will initiate and continue IV decadron x 10 doses, given presentation will also initiate IV remdesivir given < 10 day status w/ + testing but defer to discretion of Infectious disease. Patient reports being O+ blood type. 2. Hypokalemia: Admission K+ 3.3, magnesium level requested, supplementation given, repeat level in AM. 3. Hyperglycemia: Admission glucose 131, mild, likely stress response, will obtain hemoglobin A1c to be cautious. 4. Hypertension: We will continue patient home lisinopril regimen with hold parameters, as needed IV hydralazine. 5. Obesity: Weight loss and lifestyle changes encouraged. 6. ISAMAR: CPAP q HS. 7. DVT prophylaxis: SCDs, Lovenox. 8. CODE status: Patient does not have a healthcare power of trademark attorney nor living will set up. Given patient presentation with Covid pneumonia and hypoxia, discussed CODE status at length including difference between FULL code, DNR-CCA and DNR-CC status. Following discussions about the differences in these status, requested Full Code status. Discussed also concept of usage BIPAP and airvo. Advanced Care Planning Face to Face Time: 16 minutes.
[2020-06-12] MEDS: dexAMETHasone 10 MG/ML Vial 6 MG IV (04:15)
[2020-06-12] MEDS: Potassium Chloride Oral Tablet 20 MEQ 40 MEQ PO (04:39)
[2020-06-12] MEDS: Ketorolac 30 MG/ML Syringe IV ×3 (04:40→20:04)
[2020-06-12 04:41] LABS: BNP,B-Type NATRIURETIC PEPTIDE 3.3 pg/mL (0-100)
[2020-06-12 04:42] LABS: Ferritin 744 ng/mL (26-388); LDH 198 U/L (87-241)
[2020-06-12] MEDS: 0.9% Normal Saline 1,000 ML 100 ML IV (04:45)
--- NOTE | 2020-06-12 06:12 | NURSING ---
per Bakari in pharmacy the hospital is out of remdesevir at this time. Will start medication when it is available. Bakari, pharmacist stated he notified Dr. De La Garza
[2020-06-12 06:30] LABS: ALB/GLOB Ratio 0.9 RATIO (0.9-2.4); AST(SGOT) 20 U/L (15-37); Alanine Aminotransfer ALT/SGPT 27 U/L (16-61); Albumin, Serum 3.5 g/dL (3.2-5.0); Alkaline Phosphatase 75 U/L (45-117); Anion Gap 6 (5-15); BUN 12 mg/dL (7-18); BUN/Creat Ratio 15.5 RATIO (10-20); Calcium,Total 8.5 mg/dL (8.5-10.1); Chloride 101 mmol/L (98-107); Creatinine, Serum 0.78 mg/dL (0.70-1.30); EST Glomerular Filtration Rate 110 mL/min (>60); Est Glom Filt Rate - Afr Amer 134 mL/min (>60); Estimated Creatinine Clearance 110.49 ml/min; Globulin 3.8 g/dL (2.2-4.2); Glucose 157 mg/dL (74-106); Potassium 3.8 mmol/L (3.5-5.1); Protein, Total 7.3 g/dL (6.4-8.2); Sodium Level 134 mmol/L (136-145)
[2020-06-12 07:19] LABS: Absolute Lymphocyte Count 0.51 X10^3/uL (0.83-4.51); Absolute Neutrophil Count 3.9 X10^3/uL (2.0-7.7); Basophil# 0.04 X10^3/uL; Basophil% 0.8 % (0-1); Eosinophil# 0.02 X10^3/uL; Eosinophils% 0.4 % (0-5); Hemoglobin 13.2 g/dL (13.0-16.5); Lymphocyte # 0.51 X10^3/ul (4.0); Lymphocyte % 10.6 % (19-41); Mean Corp Hgb Conc 33.8 g/dL (32-36); Mean Corpuscular Hgb 26.8 pg (27.0-32.0); Mean Corpuscular Volume 79.3 fL (80-94); Mean Platelet Vol. 8.8 fl (6.2-12.0); Monocyte# 0.19 X10^3/uL; NRBC Flagged by Analyzer 0 % (0-5); Neutrophil % 81.3 % (47-70); POSITIVE DIFFERENTIAL YES; Platelet Count 210 K/mm3 (150-450); RBC Distribution Width CV 13.2 % (11.6-14.6); RBC Distribution Width SD 37.4 fl (35.1-43.9); Red Blood Count 4.92 M/mm3 (4.6-6.2); White Blood Count 4.8 K/mm3 (4.4-11.0)
[2020-06-12 07:24] LABS: Differential Indicated SCAN CRITERIA MET
[2020-06-12] MEDS: Enoxaparin 30 MG/0.3 ML Syringe SC ×2 (07:46→20:04)
[2020-06-12] MEDS: Lisinopril 10 MG Tablet PO (07:46)
[2020-06-12] MEDS: Famotidine 20 MG Tablet PO ×2 (07:46→20:04)
[2020-06-12 08:02] LABS: Differential Comment SCANNED
[2020-06-12 08:17] LABS: Hemoglobin A1c 5.9 % (3.8-5.6)
--- NOTE | 2020-06-12 14:29 | PCM.PN.BLA ---
Progress Note 1. Acute COVID-19 pneumonia -He is approximately 10 days out from symptom onset, will continue with remdesivir and Decadron -If he continues to not require any oxygen can plan for discharge and complete course of Decadron -CTA of the chest was unremarkable, continue with Lovenox and will plan for 14 days of low-dose Eliquis on discharge given his D-dimer elevation of 2.12 2. HTN/obesity -Discussed lifestyle modifications -Continue with his lisinopril DVT: Lovenox STROKE Vital Signs/Narrative: Vital Signs Temp Pulse Resp BP Pulse Ox 06/12/20 14:03 97.3 F L 86 20 H 149/77 H 95 06/12/20 11:11 74
[2020-06-12] MEDS: Morphine 2 MG/ML Syringe IV (17:05)
--- NOTE | 2020-06-12 19:55 | CPS ---
Patient's home CPAP machine setup at bedside. Water chamber filled. Settings: CPAP 14 with no oxygen added.
[2020-06-12] MEDS: 0.9% Saline Lock 10 ML Syringe IV (20:07)
[2020-06-13 02:00] VITALS: BP 126/73; PULSE 66; RESP 14; TEMP 36.3; O2SAT 96
[2020-06-13] MEDS: Acetaminophen 325 MG Tablet 650 MG PO (04:02)
[2020-06-13 04:09] LABS: Absolute Lymphocyte Count 1.48 X10^3/uL (0.83-4.51); Basophil# 0.01 X10^3/uL; Basophil% 0.2 % (0-1); Hematocrit 38.2 % (40-54); Hemoglobin 12.8 g/dL (13.0-16.5); Lymphocyte # 1.48 X10^3/ul (4.0); Lymphocyte % 29.1 % (19-41); Mean Corp Hgb Conc 33.5 g/dL (32-36); Mean Corpuscular Hgb 26.9 pg (27.0-32.0); Mean Corpuscular Volume 80.4 fL (80-94); Mean Platelet Vol. 8.4 fl (6.2-12.0); Monocyte# 0.62 X10^3/uL; Monocyte% 12.2 % (0-10); NRBC Flagged by Analyzer 0 % (0-5); Neutrophil # 2.96 X10^3/uL (2.7-7.7); Neutrophil % 58.3 % (47-70); Platelet Count 203 K/mm3 (150-450); RBC Distribution Width CV 13.1 % (11.6-14.6); RBC Distribution Width SD 38.3 fl (35.1-43.9); Red Blood Count 4.75 M/mm3 (4.6-6.2); White Blood Count 5.1 K/mm3 (4.4-11.0)
[2020-06-13 04:27] LABS: ALB/GLOB Ratio 0.8 RATIO (0.9-2.4); AST(SGOT) 13 U/L (15-37); Alanine Aminotransfer ALT/SGPT 23 U/L (16-61); Albumin, Serum 3.2 g/dL (3.2-5.0); Alkaline Phosphatase 69 U/L (45-117); Anion Gap 6 (5-15); BUN 17 mg/dL (7-18); BUN/Creat Ratio 21.6 RATIO (10-20); Calcium,Total 8.5 mg/dL (8.5-10.1); Chloride 105 mmol/L (98-107); Creatinine, Serum 0.79 mg/dL (0.70-1.30); EST Glomerular Filtration Rate 109 mL/min (>60); Est Glom Filt Rate - Afr Amer 131 mL/min (>60); Estimated Creatinine Clearance 109.09 ml/min; Globulin 3.8 g/dL (2.2-4.2); Glucose 124 mg/dL (74-106); Potassium 3.7 mmol/L (3.5-5.1); Sodium Level 138 mmol/L (136-145)
[2020-06-13] MEDS: 0.9% Saline Lock 10 ML Syringe IV (05:38)
[2020-06-13] MEDS: Ketorolac 30 MG/ML Syringe IV (05:39)
[2020-06-13 08:00] VITALS: BP 133/86; PULSE 68; RESP 16; TEMP 36.6; O2SAT 95
[2020-06-13] MEDS: dexAMETHasone 4 MG/ML Vial 6 MG IV (08:46)
[2020-06-13] MEDS: Lisinopril 10 MG Tablet PO (08:46)
[2020-06-13] MEDS: Enoxaparin 30 MG/0.3 ML Syringe SC (08:46)
[2020-06-13] MEDS: Famotidine 20 MG Tablet PO (08:47)
[2020-06-13 09:29] VITALS: O2SAT 94; O2SAT 95
--- NOTE | 2020-06-13 09:35 | PCM.DC ---
- Discharge Diagnoses Current Active Problems: Current Active and Chronic Problems Hypertension (Chronic) Osteoarthritis of left knee (Chronic) ISAMAR (obstructive sleep apnea) (Chronic) Pneumonia due to COVID-19 virus (Acute) Hypoxia (Acute) You will use the following diet at home:: Regular Your food should be the consistency of: Regular Your liquids should be the consistency of: Regular/Thin Discharge Activity: Return to Normal Activity Call your doctor if you observe: Fever of 101 or Higher, Shortness of breath, Dizziness, Fainting spells, Swelling in the ankles, Chest pain, Increased palpitations (irregular heartbeat) Instructions: Coronavirus Disease 2019 (COVID-19): Caring for Yourself or Others, Coronavirus Disease 2019 (COVID-19): Overview Allergies/Adverse Reactions: Allergies No Known Allergies Allergy (Verified 06/12/20 01:04) Medications to take at Discharge Lisinopril [Zestril] 10 mg PO DAILY 05/04/20 Apixaban [Eliquis] 2.5 mg PO BID #28 tablet 06/13/20 Dexamethasone [Decadron] 6 mg PO DAILY #24 tablet 06/13/20 The following prescriptions were given: Dexamethasone [Decadron] 6 mg PO DAILY #24 tablet Transmission Status: Pending to [facility] Apixaban [Eliquis] 2.5 mg PO BID #28 tablet Transmission Status: Pending to [facility] Primary Care Physician: Mustapha Landa DO [Primary Care Provider] - Please follow up with your Primary Care Physician in: 3-5 days Test Results: Test results from this visit will be discussed in further detail at your follow-up appointment, if applicable.
--- NOTE | 2020-06-13 10:05 | CASEMGMT ---
RN SÁNCHEZ called patient in room for initial transition planning/care coordination assessment. RN SÁNCHEZ introduced self and role at [facility]. Patient is alert and oriented. Patient willing to participate in assessment and is able to answer all questions appropriately. Care providers, pharmacy, and demographics verified. Patient wishes to discharge home, denies need for home health at this time. Patient states he has no further needs or concerns at this time. CM to follow for discharge planning needs that may arise. PCP: Syeda Specialists: None Preferred Pharmacy: ok with [facility] retail at discharge Insurance: [employer] Prescription Benefit: yes Living Will/HPOA: none LNOK: Living Arrangements: Patient lives with in a single story home with 3 steps and railing to enter the home. Patient states he is independent at home. is sick as well and isolating at home. Patient states he has family that could bring groceries and supplies to house Transportation: self/ DME/HHC: Patient states he has walker, cpap, and pulse ox at home. Patient was attending outpatient therapy at [facility], given exercises to complete at home while in quarantine. Disposition Plan: Patient to discharge home with family support and follow-up plans in place. Verito TAYLOR, RN, CM
--- NOTE | 2020-06-13 10:27 | DS.PCM_ITS ---
Discharge Date and Diagnosis - Problem List Patient Problems: Active and Suspected Problems Pneumonia due to COVID-19 virus (Acute) Hypoxia (Acute) Date of Admission: 06/12/20 Date of Discharge: 06/13/20 - Primary Discharge Diagnosis Acute Problems: Active Problems Pneumonia due to COVID-19 virus (Acute) Hypoxia (Acute) - Secondary Discharge Diagnosis Chronic Problems: Chronic Problems Hypertension (Chronic) Osteoarthritis of left knee (Chronic) ISAMAR (obstructive sleep apnea) (Chronic) Hospital Course and Treatment Imaging Results: Clinical Impression(s) from Imaging Studies Chest X-Ray 06/12/20 01:17 IMPRESSION: Possible mild multifocal pneumonitis versus superimposition artifact. Clinical correlation recommended. Electronically Signed: Roselyn Mcallister MD at 2:11 EDT , Service support , Chest CTA 06/12/20 02:03 IMPRESSION: Negative CTA chest examination, without a demonstrated pulmonary embolism or arterial dissection. Diffuse multifocal multilobar bilateral pneumonitis as described. No pleural effusion or pneumothorax. Electronically Signed: Roselyn Mcallister MD at 2:42 EDT , Service support , Consults: None Operations: None Procedures: None Summary of Care Provided: Per HPI: The patient is a 55 y/o M w/ PMHx: HTN, ISAMAR on CPAP q HS, Chronic back pain, Obesity who presents to the [facility] ED on 06/12/20 with history of patient's recently having been ill with Covid however he started to also become ill approximately 9 days prior to current presentation with self quarantine with the assumption of Covid onset with worsening symptoms the day prior to current presentation with onset of left-sided pleuritic chest discomfort described as dull aching, continuous, worse with deep inspiratory effort with ongoing cough, dyspnea, fevers, myalgias, malaise, nausea with poor oral intake ability, mild abdominal cramping as well as diarrhea intermittently and fatigue prompting ED evaluation. Work-up in the ED included T 98.7, heart rate 92, BP 158/72, respiratory rate 22, 98% on room air however patient did decrease to 93% on room air during ED presentation, CBC with WBC 5.0, hemoglobin 13.8, platelet 202 without marked shift, D-dimer 2.12, CMP with sodium 133, potassium 3.3, glucose 131, troponin less than 0.015, lactic acid 1.0, blood culture x2 pending per ED, SARS rapid Covid antigen positive, rapid influenza panel negative, chest x-ray with mild multifocal pneumonitis, EKG with sinus rhythm with no acute evidence of ischemia. In the ED patient administered albuterol inhaler, NS and Zofran therapy. Hospital Course: 1. Acute COVID-19 [id number] male presented to to the hospital because he was feeling worse since he was diagnosed with Covid. He said that symptom onset was about 9 days prior to admission and he just been feeling worse with malaise and ongoing cough. When he presented to the hospital he had no hypoxia and was afebrile. He was given a dose of remdesivir and then we ran out of that, and he was also started on Decadron which he will continue to complete a 10-day course. I discussed with him that his D-dimer was elevated that his CT of the chest was negative for PE. He denies any lower extremity edema or pain though he did just have a left knee replacement on 3 weeks ago which could also explain the elevation in his D-dimer. However given the fact that anecdotally there is been some clotting issues with patients post Covid, will plan for Eliquis 2.5 mg p.o. twice daily for 14 days on discharge. Would also recommend that if he has increased swelling or redness in his lower extremities that he follow-up with his PCP and obtain Doppler. I did offer him a Doppler of his lower extremities today but he felt like he would rather just go home. I discussed with him plan for discharge and he expressed understanding of the risk and benefits of going home and want to go home today. 2. Hypertension and obesity or chronic medical conditions which complicate his care. His home medications were continued where appropriate Patient Problems: Active and Suspected Problems Pneumonia due to COVID-19 virus (Acute) Hypoxia (Acute) - Physical Exam Vitals/I&O's: Vital Signs Temp Pulse Resp BP Pulse Ox 97.8 F 68 16 133/86 H 95 06/13/20 08:00 06/13/20 08:00 06/13/20 08:00 06/13/20 08:00 06/13/20 09:29 Oxygen Flow Rate (L/min) [ 0 AMBULATING on Room Air] Oxygen Flow Rate (L/min) [At 0 REST on Room Air] Oxygen Delivery Method Room Air Weight: 246 lb 7.629 oz Body Mass Index (BMI) 35.4 Intake and Output for Last 24 Hours 06/11/20 06/12/20 06/13/20 23:59 23:59 23:59 Intake Total 2238.85 / 2238.85 Output Total 325 / 325 Balance 1913.85 / 1912.85 General: Alert, Oriented x3, Cooperative, No apparent distress HEENT: Atraumatic, PERRLA, EOMI, Normocephalic Oral: Moist Mucosa Neck: Supple, No JVD Lungs: Clear to auscultation, Normal air movement, No rhonchi, No wheeze, No rales Cardiovascular: Regular rate, Regular Rhythm, Normal S1, Normal S2, No murmurs Abdomen: Soft, Non Tender, Non-Distended, No Hepato-splenomegaly Extremities: No edema, Capillary Refill Less than 3 Seconds Skin: No rashes, No breakdown Neurological: Neuro grossly intact, Sensory exam intact to light touch and pain Psych/Mental Status: Normal Affect, Appropriate Microbiology Past 72 Hours 06/12/20 05:30 Mucosa - Nasopharyngeal Respiratory Panel (PCR) - Final 06/12/20 05:00 Urine, Clean Catch Legionella Antigen - Final 06/12/20 05:00 Urine, Clean Catch Streptococcus pneumoniae Antigen (M - Final 06/12/20 01:32 Mucosa - Nasopharyngeal Influenza Types A,B Direct FA (NICO) - Final 06/12/20 01:26 Mucosa - Nose SARS-CoV-2 Antigen (Rapid) - Final SARS-CoV-2 (COVID 19) Laboratory Results 06/13/20 04:00: WBC 5.1, RBC 4.75, Hgb 12.8 L, Hct 38.2 L, MCV 80.4, MCH 26.9 L, MCHC 33.5, RDW Std Deviation 38.3, RDW Coeff of Alia 13.1, Plt Count 203, MPV 8.4, Immature Gran % (Auto) 0.200, Neut % (Auto) 58.3, Lymph % (Auto) 29.1, [place] % (Auto) 12.2 H, Eos % (Auto) 0.0, Baso % (Auto) 0.2, Absolute Neuts (auto) 3.0, Absolute Lymphs (auto) 1.48, Nucleated RBC % 0 06/13/20 04:00: Sodium 138, Potassium 3.7, Chloride 105, Carbon Dioxide 27.0, A nion Gap 6, BUN 17, Creatinine 0.79, Estim Creat Clear Calc 109.09, Est GFR (MDRD) Af Amer 131, Est GFR (MDRD) Non-Af 109, BUN/Creatinine Ratio 21.6 H, Glucose 124 H, Calcium 8.5, Total Bilirubin 0.40, AST 13 L, ALT 23, Alkaline Phosphatase 69, Total Protein 7.0, Albumin 3.2, Globulin 3.8, Albumin/Globulin Ratio 0.8 L Current Medications Acetaminophen (Acetaminophen 325 Mg Tablet) 650 mg PO Q6H PRN PRN PRN Reason: Pain Score 1-10/Temp > 100.7 F Last Admin: 06/13/20 04:02 Dose: 650 mg Documented by: Al Hydroxide/Mg Hydroxide (Mag Hydrox/Al Hydrox/Simeth 30 Ml Udc) 30 ml PO Q6H PRN PRN PRN Reason: Gastric Burning Albuterol Sulfate (Albuterol Ih 8.5 Gm (Proair) Inhaler (200 Puffs)) 4 - 8 puff INHALATION Q4H PRN PRN PRN Reason: Dyspnea, wheezing Dexamethasone Sodium Phosphate (Dexamethasone 4 Mg/Ml Vial) 6 mg IV DAILY [facility] Stop: 06/21/20 10:01 Last Admin: 06/13/20 08:46 Dose: 6 mg Documented by: Enoxaparin Sodium (Enoxaparin 30 Mg/0.3 Ml Syringe) 30 mg SC BID [facility] Last Admin: 06/13/20 08:46 Dose: 30 mg Documented by: Famotidine (Famotidine 20 Mg Tablet) 20 mg PO BID [facility] Last Admin: 06/13/20 08:47 Dose: 20 mg Documented by: Guaifenesin (Guaifenesin 10 Ml Udc (200mg/10ml)) 20 ml PO Q4H PRN PRN PRN Reason: COUGH Hydralazine HCl (Hydralazine 20 Mg/Ml Vial) 10 mg IV Q4H PRN PRN PRN Reason: SBP > 160 Remdesivir 100 mg/ Sodium (Chloride) 250 mls @ 125 mls/hr IV DAILY [facility]; Protocol Stop: 06/16/20 11:59 Last Admin: 06/13/20 09:54 Dose: Not Given Documented by: Sodium Chloride () 250 mls @ 15 mls/hr IV .[id number] PRN PRN Reason: Saline Flush Ketorolac Tromethamine (Ketorolac 30 Mg/Ml Syringe) 30 mg IV Q8 [facility] Stop: 06/13/20 14:01 Last Admin: 06/13/20 05:39 Dose: 30 mg Documented by: Lisinopril (Lisinopril 10 Mg Tablet) 10 mg PO DAILY [facility] Last Admin: 06/13/20 08:46 Dose: 10 mg Documented by: Loperamide HCl (Loperamide 2 Mg Capsule) 2 mg PO Q2H PRN PRN PRN Reason: Diarrhea Magnesium Hydroxide (Magnesium Hydroxide 30 Ml Udc) 30 ml PO DAILY PRN PRN PRN Reason: Constipation Melatonin (Melatonin 3 Mg Tablet) 3 mg PO QHS PRN PRN PRN Reason: INSOMNIA Morphine Sulfate (Morphine 2 Mg/Ml Syringe) 2 mg IV Q3H PRN PRN PRN Reason: Pain Score 6-10 Last Admin: 06/12/20 17:05 Dose: 2 mg Documented by: Ondansetron HCl (Ondansetron 4 Mg/2 Ml Vial) 4 mg IV Q8H PRN PRN PRN Reason: NAUSEA/VOMITING Oxycodone HCl (Oxycodone 5 Mg Tablet) 5 mg PO Q4H PRN PRN PRN Reason: Pain Score 4-5 Prochlorperazine Edisylate (Prochlorperazine 10 Mg/2 Ml Vial) 5 mg IV Q4H PRN PRN PRN Reason: Breakthrough nausea/vomiting Psyllium Hydrophilic Mucilloid (Psyllium 1 Packet) 1 packet PO DAILY PRN PRN PRN Reason: Constipation Senna/Docusate Sodium (Senna/Docusate Sodium 1 Tablet) 2 tablet PO BID PRN PRN PRN Reason: Constipation Sodium Chloride (0.9% Saline Lock 10 Ml Syringe) 10 - 40 ml IV UD PRN PRN Reason: SALINE FLUSH Last Admin: 06/13/20 05:38 Dose: 30 ml Documented by: Throat Lozenges (Benzocaine/Menthol 1 Lozenge) 1 lozenge MUCOUS MEM Q2H PRN PRN PRN Reason: SORE THROAT Discharge Activity: Return to Normal Activity Call your doctor if you observe: Fever of 101 or Higher, Shortness of breath, Dizziness, Fainting spells, Swelling in the ankles, Chest pain, Increased palpitations (irregular heartbeat) Home Medications: Medications to take at Discharge Lisinopril [Zestril] 10 mg PO DAILY 05/04/20 Apixaban [Eliquis] 2.5 mg PO BID #28 tablet 06/13/20 Dexamethasone [Decadron] 6 mg PO DAILY #24 tablet 06/13/20 Following Prescriptions Were Given to Patient: Dexamethasone [Decadron] 6 mg PO DAILY #24 tablet Transmission Status: Received by [facility] Apixaban [Eliquis] 2.5 mg PO BID #28 tablet Transmission Status: Received by [facility] Primary Care Physician: Mustapha Landa DO [Primary Care Provider] - Please follow up with your Primary Care Physician in: 3-5 days Patient Instructions: Coronavirus Disease 2019 (COVID-19): Overview, Coronavirus Disease 2019 (COVID-19): Caring for Yourself or Others Disposition: Home Minutes spent on discharge:: 35 Patient Condition:: Stable Medical Necessity - Tobacco Use Smoking Status: Never smoker Tobacco Use: Non-smoker Meaningful Use Info Meaningful Use Diagnoses (Choose all that apply): None applicable OBSV E&M: 76274 Observation care discharge
--- NOTE | 2020-06-15 16:18 | CASEMGMT ---
SIMON POZO Discharge Follow-up Phone Call: STEVEMaggie: Sajan: OBS Call Date: 06/15/20 Discharge Date: 06/13/20 Time of Call: [id number] Duration: 3 min Admitting Diagnosis: Covid SIMON POZO completed follow-up phone call after recent hospitalization. Patient states he is doing well and had telephone follow-up with PCP today. Patient had no questions or concerns regarding discharge instructions. Patient was able to fill prescriptions without any issues. Patient state that his breathing has been will and has been checking his SPO2 and has been in mid 90s. Patient had no further questions or concerns at this time.
== END 2020-06-13 11:15 | disposition home or self-care (01) ==
LOC: ED 03:47 → ICU 05:56
PROVIDERS: Admitting Provider Family Medicine; Emergency Provider Emergency Medicine; PCP Student in an Organized Health Care Education/Training Program; Visit Provider Family Medicine
DX: U07.1 COVID-19 (principal); J12.82 Pneumonia due to coronavirus disease 2019; R09.02 Hypoxemia; I10 Essential (primary) hypertension; G47.33 Obstructive sleep apnea (adult) (pediatric); M17.12 Unilateral primary osteoarthritis, left knee; Z79.899 Other long term (current) drug therapy; E66.9 Obesity, unspecified; Z68.35 Body mass index [BMI] 35.0-35.9, adult; R73.9 Hyperglycemia, unspecified; E87.6 Hypokalemia
CPT/HCPCS: 71045; 71275; 80053; 82728; 83036; 83605; 83615; 83735; 83880; 84145; 84484; 85025; 85379; 86140; 87040; 87426; 87449; 87633; 87804; 93005; 94640; 96372; 96374; 96375; 96376; 99218; 99251; 99284; J7030; J7050; Q9967; A4216; G0378; G0463; J2405